=== PATIENT | female | born 1985 | race Caucasian/White ===

== ENCOUNTER 2017-02-19 07:38 | Inpatient (IN) | payer OTHER ==
[~2017-02-19] VITALS: Ht 154.9 cm; Wt 81.8 kg
[2017-02-20] MEDS ORDERED: NEWBORN KIT ONE (05:33)
[2017-02-20] MEDS ORDERED: LACTATED RINGERS 1,000 ML IV SCH ×2 (05:39→08:26)
[2017-02-20] MEDS ORDERED: OXYTOCIN 30U/ 0.9% NaCL 500ML 500 ML IV SCH ×2 (05:39→08:26)
[2017-02-20] MEDS ORDERED: LACTATED RINGERS 1,000 ML IVBOLUS ONE (06:00)
[2017-02-20] MEDS ORDERED: METOCLOPRAMIDE 5 MG/ML, 2ML IV ONE (06:00)
[2017-02-20] MEDS ORDERED: SODIUM CITRATE/CITRIC ACID 30 ML UDC PO ONE (06:00)
[2017-02-20 06:03] LABS: HEMOGLOBIN 13.3 g/dL (11.7-16.4)
[2017-02-20] MEDS ORDERED: SODIUM CITRATE/CITRIC ACID 30 ML UDC ONE (07:13)
[2017-02-20] MEDS ORDERED: METOCLOPRAMIDE 5 MG/ML, 2ML ONE (07:13)
[2017-02-20] MEDS ORDERED: OXYTOCIN 30U/ 0.9% NaCL 500ML 500 ML ONE (07:14)
[2017-02-20] MEDS ORDERED: FENTANYL PF 100 MCG/2ML ONE (07:18)
[2017-02-20] MEDS ORDERED: CEFAZOLIN 1,000 MG ONE (07:22)
[2017-02-20] MEDS ORDERED: OXYTOCIN 10 UNITS/ML, 1ML ONE (07:22)
[2017-02-20] MEDS ORDERED: EPHEDRINE 50 MG/ML, 1ML ONE (07:22)
[2017-02-20] MEDS ORDERED: KETOROLAC 30 MG/1 ML ONE (07:22)
[2017-02-20] MEDS ORDERED: ONDANSETRON 2MG/ML, 2ML IV PRN ×2 (08:30)
[2017-02-20] MEDS ORDERED: FENTANYL PF 100 MCG/2ML IV PRN (08:30)
[2017-02-20] MEDS ORDERED: DIPH,PERTUSS(ACELL),TET VAC/PF NC IM-VACC PRN (08:30)
[2017-02-20] MEDS ORDERED: RHOGAM FROM BLOOD BANK 1 NOTE EA IM/IV ONE ×2 (08:30)
[2017-02-20] MEDS ORDERED: MEPERIDINE/PF 50 MG/ML IM PRN (08:30)
[2017-02-20] MEDS ORDERED: MEPERIDINE/PF 50 MG/ML IVPush PRN (08:30)
[2017-02-20] MEDS ORDERED: ONDANSETRON 2MG/ML, 2ML IVPush PRN (08:30)
[2017-02-20] MEDS ORDERED: morphine SULFATE 10 MG/ML, 1ML IV PRN (08:30)
[2017-02-20] MEDS ORDERED: IBUPROFEN 600 MG TABLET PO PRN (08:30)
[2017-02-20] MEDS ORDERED: MEPERIDINE/PF 25MG/0.5ML IVPush PRN (08:30)
[2017-02-20] MEDS ORDERED: MEASLES,MUMPS&RUBELLA VACC/PF 0.5 ML SQ-VACC PRN (08:30)
[2017-02-20] MEDS ORDERED: OXYcodone 5 MG/5 ML ORAL.SOL UDC PO PRN (08:30)
[2017-02-20] MEDS: KETOROLAC 30 MG/1 ML IV SCH ×3 (08:30→21:43)
[2017-02-20] MEDS ORDERED: OXYcodone IR 5MG TABLET PO PRN (08:30)
[2017-02-20] MEDS ORDERED: MISOPROSTOL 200 MCG TABLET PR PRN ×2 (08:30)
[2017-02-20] MEDS ORDERED: KETOROLAC 30 MG/1 ML IV SCH (08:30)
[2017-02-20] MEDS ORDERED: HYDROcodone/APAP 5/325 TABLET PO PRN (08:30)
[2017-02-20] MEDS: PRENATAL VIT/IRON/FA 1 EACH TABLET PO SCH (09:00)
[2017-02-20] MEDS ORDERED: MISOPROSTOL 200 MCG TABLET ONE (09:30)
[2017-02-20] MEDS: OXYTOCIN 30U/ 0.9% NaCL 500ML 500 ML IV SCH ×2 (09:45→16:52)
[2017-02-20] MEDS: LACTATED RINGERS 1,000 ML IV SCH ×2 (09:45→16:29)
[2017-02-20] MEDS ORDERED: IBUPROFEN 600 MG TABLET ONE (10:03)
[2017-02-20] MEDS ORDERED: OXYcodone 5 MG/5 ML ORAL.SOL UDC ONE (10:07)
[2017-02-20 10:40] VITALS: BP 128/77
[2017-02-20 14:30] VITALS: BP 136/86
[2017-02-20 16:43] LABS: DIFF TOTAL CELLS COUNTED 100 CELL DIFF
[2017-02-20 16:46] LABS: VERIFY COUNTS? YES
[2017-02-20] MEDS: OXYcodone IR 5MG TABLET PO PRN (18:42)
[2017-02-20 20:00] VITALS: BP 141/95
[2017-02-20 21:39] VITALS: BP 134/96
[2017-02-20] MEDS: DOCUSATE 100 MG CAPSULE PO PRN (21:42)
[2017-02-21] MEDS: OXYcodone IR 5MG TABLET PO PRN ×6 (00:04→23:28)
[2017-02-21] MEDS: LACTATED RINGERS 1,000 ML IV SCH (00:29)
[2017-02-21 00:45] VITALS: BP 135/92
[2017-02-21 04:00] VITALS: BP 140/93
[2017-02-21] MEDS: KETOROLAC 30 MG/1 ML IV SCH ×2 (04:00→04:15)
[2017-02-21] MEDS: OXYTOCIN 30U/ 0.9% NaCL 500ML 500 ML IV SCH (04:29)
[2017-02-21] MEDS: IBUPROFEN 600 MG TABLET PO PRN ×3 (04:48→18:36)
[2017-02-21 06:50] VITALS: BP 124/78
[2017-02-21] MEDS: DOCUSATE 100 MG CAPSULE PO PRN ×2 (08:27→19:26)
[2017-02-21] MEDS: PRENATAL VIT/IRON/FA 1 EACH TABLET PO SCH (08:27)
[2017-02-21] MEDS ORDERED: IBUPROFEN 600 MG TABLET PO PRN (08:30)
[2017-02-21 20:00] VITALS: BP 137/98
[2017-02-22] MEDS: IBUPROFEN 600 MG TABLET PO PRN ×2 (00:35→08:31)
[2017-02-22] MEDS: OXYcodone IR 5MG TABLET PO PRN ×2 (05:47→11:02)
[2017-02-22] MEDS: PRENATAL VIT/IRON/FA 1 EACH TABLET PO SCH (08:31)
[2017-02-22] MEDS: DOCUSATE 100 MG CAPSULE PO PRN (08:31)
[2017-02-22 09:00] VITALS: BP 125/89
[2017-02-22] MEDS ORDERED: IBUP-1222 PO (10:22)
[2017-02-22] MEDS ORDERED: OXYC5TAB3 PO (10:22)
[2017-02-22] MEDS ORDERED: DOCU-30 PO (10:23)
== END 2017-02-22 12:05 | disposition home or self-care (01) | DRG 766 ==
LOC: LDIP 02-20 05:29 → 2NW 02-20 10:35
PROVIDERS: ADMIT Specialist; ATTEND Specialist
PROC: 10D00Z1 Extraction of Products of Conception, Low, Open Approach (ICD-10-PCS; principal; 2017-02-20)
PROC: 0T9B70Z Drainage of Bladder with Drainage Device, Via Natural or Artificial Opening (ICD-10-PCS; 2017-02-20)
DX: O76 Abnormality in fetal heart rate and rhythm complicating labor and delivery (principal); O34.211 Maternal care for low transverse scar from previous cesarean delivery; Z3A.39 39 weeks gestation of pregnancy; Z37.0 Single live birth
CPT/HCPCS: 36415; 85025; 86850; 86900; J0690; J1885; J3010; J2590; J2765; J7120